=== PATIENT | male | born 1950 | race African-American/Black ===

== ENCOUNTER 2019-08-23 14:54 | Inpatient (IN) | payer OTHER ==
[~2019-08-23] VITALS: Ht 180.3 cm; Wt 70.4 kg
[2019-08-23 17:20] VITALS: BP 142/83
--- NOTE | 2019-08-23 19:35 | NUR ---
ASSUMED CARE OF PT AT 1715. PT HAS A TRACHEOSTOMY AND NEEDED SUCTIONING ONCE ARRIVING ON THE FLOOR. PT REFUSED SUCTIONING FROM NURSES AND REQUESTED RT. RT WAS CALLED AND SUCTIONING WAS STARTED. DR. MARIE SAW THE PT AND FINISHED SUCTIONING PT AND CARED FOR TRACH COLLAR. PT IS ON 14.0 L O2 AND FI02 35%. PT REQUESTED A VOCALIZER. FALL PRECAUTIONS IN PLACE. BED IN LOWEST POSITION. CALL LIGHT IS WITHIN REACH, AND NOC NURSE ADVISED THAT PT CANNOT SPEAK TO VOICE CONCERNS OVER THE INTERCOM. PT WAS GIVEN A PEN AND PAPER TO COMMUNICATE WITH STAFF. NO APPARENT PAIN MENTIONED. REPORT GIVEN TO NOC NURSE.
[2019-08-23] MEDS ORDERED: CARDIZEM60 MG PER TUBE (19:43)
[2019-08-23] MEDS ORDERED: PROSCAR 5MG TABL5 M1 PER TUBE (19:45)
[2019-08-23] MEDS ORDERED: PEPCID20 MG PER TUBE (19:45)
[2019-08-23] MEDS ORDERED: FUROSEMIDE 40 M40 MG PO (19:46)
[2019-08-23] MEDS ORDERED: GUAIFENESIN200 MG PER TUBE (19:48)
[2019-08-23] MEDS ORDERED: NORCO 5-325 TA1 EAC1 PER TUBE (19:50)
[2019-08-23] MEDS ORDERED: MELATONIN3 M2 PER TUBE (19:55)
[2019-08-23] MEDS ORDERED: METFORMIN HCL500 MG PER TUBE (19:56)
[2019-08-23] MEDS ORDERED: REGLAN10 MG PER TUBE (19:57)
[2019-08-23] MEDS ORDERED: MIRALAX119 GM PER TUBE (20:16)
[2019-08-23] MEDS ORDERED: PREDNISONE 5 MG5 MG PER TUBE (20:17)
[2019-08-23] MEDS ORDERED: SIMVASTATIN80 MG PER TUBE (20:18)
[2019-08-23 23:11] VITALS: BP 116/71
--- NOTE | 2019-08-24 02:00 | NUR ---
ASSESSMENT COMPLETED. PT IS ALERT AND ORIENTED. COMMUNICATES WELL BY WRITING. USES URINAL.CONTINUES ON RT TREATMENT Q4HRS. TRACH SHIELD WITH 35%F102@14L. PT HAS GOOD COUGH REFLEX-THICK YELLOW SPUTUM. SUCTIONED A FEW TIMES BY RT.VSS. ALL MEDS GIVEN VIA PEG-QUITE SOME AMOUNT OF RESIDUAL NOTED. EDEMA NOTED TO R ELBOW AREA-HAND ELEVATED ON PILLOW.IV ABTS STARTED.PT WAS GIVEN OXYCODONE X 1 FOR NECK PAIN. WRAPS TO BLE AND LEGS ELEVATED. NO FURTHER CONCERNS.
[2019-08-24] MEDS ORDERED: REGLAN 10 MG TA10 MG PO (04:09)
[2019-08-24 06:16] VITALS: BP 123/80
[2019-08-24 07:01] LABS: ALBUMIN 1.7 g/dL (3.4-5.0); CALCIUM 8.4 mg/dL (8.5-10.1); CREATININE 0.7 mg/dL (0.7-1.3); TOTAL BILIRUBIN 0.2 mg/dL (<0.1-1.0); TOTAL PROTEIN 5.6 g/dL (6.4-8.2)
[2019-08-24 08:20] LABS: HEMATOCRIT 25.5 % (42.0-52.0); HEMOGLOBIN 8.1 gm/dL (14.0-18.0); MCH 25.5 pg (26.0-34.0); MCHC 31.9 g/dL (28.0-37.0); MCV 79.8 fL (80.0-100.0); RBC 3.19 mil/uL (4.50-6.00); RDW 22.8 % (10.5-14.5); WBC 6.3 thou/uL (4.0-11.0)
[2019-08-24 08:36] VITALS: BP 92/62
--- NOTE | 2019-08-24 11:10 | EKG ---
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
[2019-08-24 15:52] VITALS: BP 89/59
--- NOTE | 2019-08-24 18:06 | NUR ---
ASSUMED CARE OF PT AT 0700. PT ON 14.0 LITERS OF O2 FOR THE TRACHEOSTOMY. PTS RESIDUAL WAS 200. PER DR. MARIE NO MORE FEEDINGS UNTIL RESIDUAL ARE 30 ML OR LESS. PT HAD ONE BM THAT WAS LOOSE. PT IS ON CONTACT FOR POSSIBLE C DIFF. CHEST X RAY WAS DONE. IV ON R WRIST. FALL PRECAUTIONS IN PLACE. CALL LIGHT WITHIN REACH AND BED IN LOWEST POSITION. PT HAS VOCALIZER. WILL CONTINUE TO MONITOR.
[2019-08-24 19:58] VITALS: BP 120/71
--- NOTE | 2019-08-25 01:56 | NUR ---
AMIE WHEN I WAS TAKING CARE OF , I COULDN'T PASS THE SUCTION CATHETER. HE WAS IN NO DISTRESS, BUT I KNEW THAT HE'S HAD A LOT SECRETIONS. I TRIED REMOVING THE INNER CANNULA. THAT DIDN'T WORK EITHER. HE STILL WASN'T IN DISTRESS. I MOVED ASIDE THE 4X4. THERE WAS A LOT PUSHED IN AROUND THE VERY LARGE STOMA, BUT IT DIDN'T LOOK LIKE PACKING, AND I TOOK THE SOAKED OLDER GAUZE OUT OF THE WAY. I COVERED THE OPEN AREA WITH 4X4'S IN THE STANDARD FASHION I WOULD FOR ANY TRACH PT. I TRIED AGAIN TO SUCTION AND THIS TIME, THE CATHETER ADVANCED EASILY, AND I WAS ABLE TO CLEAR A FAIRLY LARGE AMT OF SECRETIONS. DURING MY UNSUCCESSFUL ATTEMPTS, SECRETIONS WERE COMING OUT AROUND THE STOMA AREA. PT WAS STILL IN NO DISTRESS. I PLACED HIM ON A CONTINUOUS PULSE OX AND SPOKE WITH HIS RN.
[2019-08-25 04:42] LABS: HEMATOCRIT 22.8 % (42.0-52.0); HEMOGLOBIN 7.3 gm/dL (14.0-18.0); MCH 25.9 pg (26.0-34.0); MCHC 32.2 g/dL (28.0-37.0); MCV 80.4 fL (80.0-100.0); RBC 2.84 mil/uL (4.50-6.00); RDW 24.4 % (10.5-14.5); WBC 6.8 thou/uL (4.0-11.0)
--- NOTE | 2019-08-25 04:51 | NUR ---
PT AMBULATING TO BATHROOM WITH STANDBY ASSIST AND IS TOLERATING WELL. PERCOCET PROVIDING PAIN RELIEF. NEED STOOL FOR CDIFF. RESTING COMFORTABLY. NO NEEDS VOICED. CALL LIGHT WITHIN REACH. WILL CONTINUE TO PROVIDE FREQUENT OBSERVATION.
[2019-08-25 09:16] VITALS: BP 105/67
--- NOTE | 2019-08-25 12:23 | NUR ---
Assumed care of pt at 0700. Pt a&ox4. On 14L O2 and 35% FiO2. Stool sample collected and sent to lab for testing. Awaiting results. On intermittent tube feedings 5 cans javity 1.5 per day. Pt not tolerating. Residual greater than 50 mL. Provider aware. Accu check q6h. Vocalizer at bedside. Breathing treatments q4h. Call light within reach. Will continue to monitor.
--- NOTE | 2019-08-25 12:55 | HC ---
[facility] [place] [address] CONSULTATION Name: ROSA WISE Room #: 445-P [facility] IN M.R.#: [id number] Admission: 08/23/19 Attend Phys: Duglas Yoon MD Discharge: Date of : 48 Report #: [id number] THIS REPORT FOR: //name// CC: Duglas Yoon DATE OF SERVICE: 08/24/2019 WOUND CARE CONSULTATION AND HYPERBARIC EVALUATION REASON FOR CONSULTATION: Hyperbaric oxygen evaluation in the setting of laryngeal cancer, status post total laryngectomy and flap reconstruction with delayed healing due to radiation effect. HISTORY OF PRESENT ILLNESS: The patient is a 68-year-old gentleman with a history of tobaccoism and alcohol use. This patient was diagnosed with laryngeal cancer 16 years ago in 2002 and underwent external beam radiation and chemotherapy. He is currently a patient of Dr. Duglas Yoon, transferred from [facility]. This patient had over 100-pound weight loss over the past year with increasing dysphagia. A new primary cancer of the right side of his larynx was diagnosed 1 year ago. This patient underwent salvage laryngectomy as his only option by Dr. Yoon on 08/11/2019 with creation of a tracheostomy. The patient also had a gastrostomy tube placed for nutrition due to his severe protein-calorie malnutrition. In the postoperative period, the patient developed a pharyngocutaneous fistula. Dr. Yoon took him back to the operating room on 08/16/2019 where the patient underwent bilateral myringotomy tube placement, neck exploration with creation of a diverting spit fistula on the right side of the neck, wound debridement of the cervical laryngectomy site, and laryngectomy stoma revision. At the time of surgery, due to late effects of radiation, it was noted there was virtually no healing whatsoever in the cervical region. The pectoralis major flap, which had been done as part of the patient's reconstruction was intact, but there was no evidence of healing of the surgical flap. There was virtually no healing between the sternocleidomastoid and the overlying skin flap. Dr. Yoon has transferred the patient to [facility] with the intent of the patient undergoing hyperbaric oxygen therapy with 30 treatments of HBO followed by flap reconstruction and then 10-20 more hyperbaric oxygen therapy treatments. PAST MEDICAL HISTORY: 1. History of tobaccoism. 2. History of alcohol use. 3. Squamous cell carcinoma of the larynx, initial diagnosis in 2002, with external beam radiation and chemotherapy, onset of new laryngeal cancer, 07/2013, with laryngectomy done. 4. COPD. 5. History of acute on chronic hypoxic respiratory failure with recent pneumonia. [address] [address] CONSULTATION Name: ROSA WISE Room #: 445-P [facility] IN M.R.#: [id number] Admission: 08/23/19 Attend Phys: Duglas Yoon MD Discharge: Date of : 48 Report #: [id number] 6. Severe protein-calorie malnutrition. 7. History of urinary retention. 8. Hypertension. 9. Hypertrophic cardiomyopathy history. Echocardiography done at [facility], 07/2019, shows ejection fraction of 60-65% with mild aortic regurgitation. Cardiac cath 5 years ago was negative for coronary artery disease. 10. Diabetes mellitus type 2, new diagnosis. The patient on low-dose metformin. 11. Anemia with recent transfusion. 12. History of hypothyroidism. REVIEW OF SYSTEMS: 1. The patient is not able to speak since he had a laryngectomy done. Prior to that, he was able to speak. 2. A 100-pound weight loss over the past year. MEDICATIONS ON TRANSFER: Include Zosyn, metformin, prednisone, finasteride, oxycodone, albuterol, Lovenox, insulin lispro, diltiazem, Pepcid, guaifenesin, levothyroxine, simvastatin, thiamine, hydralazine, acetaminophen, and docusate. PHYSICAL EXAMINATION: GENERAL: Shows an alert, thin, elderly male. The patient is unable to speak due to laryngectomy with tracheostomy. HEENT: Mucous membranes are moist. ABDOMEN: Examination of the neck shows a tracheostomy in place with a trach collar. On the right side of the neck, there is an incision with sutures and a Roberts drain. There is saliva draining from this fistula. Tracheostomy has a large wide opening with tracheostomy in place. Examination of the chest shows decreased breath sounds. There is a healing incision of the right anterior chest wall from pectoralis flap. ABDOMEN: Soft with a PEG tube. EXTREMITIES: Lower extremities show no wounds. RECTAL: Deferred. LABORATORY DATA: Pending. IMPRESSION: 1. Squamous cell carcinoma of the larynx, 2002, with external beam radiation chemotherapy. Onset of new cancer of the larynx requiring, 08/11, total laryngectomy with pectoralis flap and tracheostomy. 2. Late effects of radiation with impaired wound healing of surgical flaps due to late effects of radiation. 3. History of tobaccoism. 4. History of alcohol use. 5. Hypertrophic cardiomyopathy with ejection fraction 60-65%. No evidence of [facility] [address] [place] [address] CONSULTATION Name: ROSA WISE Room #: 445-P ADM IN M.R.#: [id number] Admission: 08/23/19 Attend Phys: Duglas Yoon MD Discharge: Date of : 48 Report #: [id number] coronary artery disease. 6. Severe protein-calorie malnutrition. Labs pending. 7. History of recent respiratory failure with pneumonia, for which he was treated with antibiotics. 8. Diabetes mellitus type 2, new diagnosis with skin complications. PLAN: 1. Tracheostomy care, frequent dressing changes for mucus draining from spit fistula. 2. Order an EKG from [facility]. 3. Order a chest x-ray to clear for hyperbaric oxygen therapy, want a new chest x-ray from this institution as the patient has been treated with IV antibiotics for pneumonia. 4. Recent echocardiogram done at [facility], 07/2019, shows good ejection fraction 60-65%. The patient should tolerate hyperbaric oxygen therapy. 5. The patient has had bilateral myringotomy tubes placed, which should facilitate hyperbaric oxygen therapy. We will get the patient cleared for hyperbaric oxygen therapy by review of EKG and chest x-ray. The patient has no history of claustrophobia. Based on recent echocardiogram, the patient should tolerate hyperbaric oxygen therapy; from a cardiac standpoint, reviewed his chest x-ray to be sure his pneumonia has cleared. Maximize nutrition via PEG tube. We will anticipate the only treatment is hyperbaric oxygen therapy prior to flap reconstruction by Dr. Yoon followed by hyperbaric oxygen therapy, all of this due to late effects of radiation and impaired healing. <ELECTRONICALLY SIGNED> By: Magno Vines MD 08/25/19 1255 0606 0845 Magno Vines MD /isidro
--- NOTE | 2019-08-25 17:31 | NUR ---
ASSUMED CARE AT 1300, SHIFT ASSESMENT DONE, MEDS GIVEN. ORDER RECEIVED FOR BLOOD, ZOSYN RUNNING, WILL START BLOOD AT 1800. RESIDUAL FOR PEG TUBE CHECKED AT 1400 AND 1700, IT WAS 100 AND 70 ML, SO BOLUS TUBE FEEDING WAS HELD. PT IS SUPPOSED TO START CONTINUOUS TUBE FEEDING FROM [facility]. WILL CONTINUE TO ASSESS AND ASSIST WITH ADLs NEEDED.
[2019-08-25 17:41] VITALS: BP 118/69
[2019-08-25 18:30] VITALS: BP 122/76; BP 99/61
[2019-08-25 19:53] VITALS: BP 117/80
--- NOTE | 2019-08-26 02:00 | NUR ---
ASSESSMENT COMPLETED.TUBE FEEDINGS STARTED AT 2100 HRS, VITAL HF AT 25/HR. PT TOLERATING WELL, RESIDUAL BEEN LESS THAN 20CC. PAIN MEDS GIVEN X 1 FOR NECK PAIN. TRACH CARE PROVIDED BY RT SCHEDULED Q4HRS. BLE WITH EDEMA, ELEVATED ON PILLOWS.I OFFERED TO WRAP LEGS WITH AVANI BUT PT REFUSED. SOME EDEMA TO R ELBOW. AFEBRILE. PT LOOKING FORWARD TO HBO TREATMENTS TODAY. AFTER TRANSFUSION WITH 1 UNIT, HGB MOVED UP TO 9.5.STILL WRITING DOWN COMMUNICATIONS, VOCALIZER NOT THAT CLEAR.CALLS APPROPRIATELY.
[2019-08-26 04:12] VITALS: BP 91/62
--- NOTE | 2019-08-26 08:47 | NUR ---
Tube feed recommendations: vital high protein to reach goal of 100ml/hr x 21hrs per day (TF will be off for 3 hr/day/HBO treatment). Try to reach goal rate over next 2-3 days. Recommend water flush of 150ml every 6hr
[2019-08-26 09:00] VITALS: BP 114/70
--- NOTE | 2019-08-26 14:30 | NUR ---
PATIENT TO HYPERBARIC UNIT AFTER AICD INTERRRIGATED AND COMPATABLE TO HAVE HBO THERAPY. PATIENT UP IN THE HALLWAYS WITH PT. DENIES PAIN. TUBE FEEDING INCREASED TO 40 ML THIS AM. TO HYPERBARIC PER CART WITH O2.
[2019-08-26 17:19] VITALS: BP 148/89
[2019-08-26 19:49] VITALS: BP 119/74
--- NOTE | 2019-08-26 20:03 | NUR ---
PATIENT RETUNED TO ROOM AT 1700. TUBE FEEDINGS INCREASED TO 50 ML/HR RESIDUAL IS 10ML. PAIN MED GIVEN WITHOUT RELIEF. WATCHING TV. PATIENT KEPT UP TO DATE TO POC AND REASSURANCE GIVEN. VERBALIZED UNDERSTANDING.
[2019-08-27 04:03] VITALS: BP 109/70
--- NOTE | 2019-08-27 04:19 | NUR ---
ASSUMED PT CARE ON 08/26/19. PT HAS C/O PAIN ON HIS HEAD AT A LEVEL OF 7. PAIN MEDS WERE ADMINISTERED VIA TUBE FEEDING. TUBE FEED MEDICATIONS WERE ADMINISTERED WELL. PT COMMUNINCATES BY WRITING. WHEN I ATTEMPTED TO DO THE DRESSING CHANGE ON THE RIGH CLAVICLE PT REFUSED. PT STATED THAT HE WILL KEEP AN EYE ON IT AND HE DID NOT WANT ME TO TOUCH IT. INCREASED THE TUBE FEEDING BY 5ML/HR. PT IS CURRENTLY AT 65ML/HR. WILL CONTINUE TO INCREASE. PT STATEST THAT HE IS NOT FEELING NAUSEOUS OR NEEDS TO VOMIT. PT IS IN A PLEASANT MOOD. PT STATES THAT HE IS DOING OKAY. WILL CONTINUE TO MONITOR.
[2019-08-27 07:40] VITALS: BP 98/58
--- NOTE | 2019-08-27 14:12 | NUR ---
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 PT HAD TRACHEOSTOMY PLACED AND FAILED SWALLOW STUDY. PT ON TUBE FEEDING AT THIS TIME. CM MET WITH PT AT BEDSIDE YESTERDAY PT IS A&O X4. PT USES COLIN/HEAD GESTURES, WRITING, AND MOUTHS THIS TO COMMUNICATE. PT INDICATED HE HAD BEEN LIVING IN A HOUSE ALONE WITH 2 STEPS TO ENTER AND 2 STEPS INSIDE. PT INDICATED HE HAD BEEN INDEPEDNENT WITH GAIT AND ADLS LIGHT INDUSTRIAL AND HAD BEEN DRIVING. PT INDICATED NO HH HX. PT INDICATED HE HADN'T BE SET UP WITH ENTERAL TUBE FEEDING BEFORE. PT INDICATED HE HOPES TO NOT NEED IT UPON DC. PT IS TO RECIEVE 30 TREATMENTS OF HBO. PT HAS A VOCALIZER AND HAD BEEN PROVIDED A FORKLIFT OPERATOR FOR IT BY . PT HAD TOLD ST THAT HE WAS IN THE PROCESS OF GETTING A FORKLIFT OPERATOR FOR IT. PT'S CONTACT IS WILL MORE NUMBERS LISTED IN RECORD. PT INDICATED HE PLANS TO DC HOME ONCE MEDICALLY STABLE. PT HAS BEEN SEEN BY OT AND PT AND BOTH INDICATED THAT PT WILL LIKELY BE SAFE TO RETURN HOME UPON DC. CM TO FOLLOW INDICATED WITH DC PLANNING.
[2019-08-27 14:49] LABS: HEMATOCRIT 28.1 % (42.0-52.0); MCH 25.9 pg (26.0-34.0); MCHC 31.9 g/dL (28.0-37.0); MCV 81.1 fL (80.0-100.0); PLATELET COUNT 176 thou/uL (150-400); RBC 3.46 mil/uL (4.50-6.00); RDW 24.5 % (10.5-14.5); WBC 7.5 thou/uL (4.0-11.0)
[2019-08-27 15:00] VITALS: BP 100/67
[2019-08-27 15:04] LABS: ALBUMIN 1.9 g/dL (3.4-5.0); CREATININE 0.7 mg/dL (0.7-1.3); MAGNESIUM 1.8 mg/dL (1.8-2.4); POTASSIUM 3.3 mmol/L (3.5-5.1); TOTAL BILIRUBIN 0.2 mg/dL (<0.1-1.0); TOTAL PROTEIN 6.2 g/dL (6.4-8.2)
[2019-08-27 15:38] LABS: ABSOLUTE NEUTROPHILS 6.5 thou/uL (1.4-8.2)
[2019-08-27 15:39] LABS: ANISOCYTOSIS 2+; POLYCHROMASIA OCCASIONAL
[2019-08-27 19:41] VITALS: BP 125/84
--- NOTE | 2019-08-27 21:06 | NUR ---
Assumed care of pt at 0700. Pt a&ox4. HBO treatment today. Tube feeding infusing. Pain controlled with prn pain meds. SBA. 13L O2. BLE edema. Breathing treatments q4h. Accu check q4h. 150ml water flushes q6h. Call light within reach. Report given tp radha SILVA.
--- NOTE | 2019-08-28 04:26 | NUR ---
ASSESSMENT COMPLETED. PT REMAINS ALERT AND ORIENTED.HE IS UP AD BARB.TUBE FEEDINGS AT THE GOAL RATE OF 100/HR-RESIDUAL AT 0300 WAS MORE THAN 60CC, TUBE FEEDINGS ON HOLD FOR NOW. ACCUCHECKS OKAY. TRACH CARE PROVIDED.
[2019-08-28 05:36] VITALS: BP 89/55
[2019-08-28 06:35] LABS: HEMOGLOBIN 7.2 gm/dL (14.0-18.0); MCH 26.5 pg (26.0-34.0); MCHC 32.4 g/dL (28.0-37.0); PLATELET COUNT 151 thou/uL (150-400); RBC 2.72 mil/uL (4.50-6.00); WBC 5.3 thou/uL (4.0-11.0)
[2019-08-28 06:36] LABS: HEMATOCRIT 22.3 % (42.0-52.0); MCV 81.8 fL (80.0-100.0); RDW 25.1 % (10.5-14.5)
[2019-08-28 06:54] LABS: CALCIUM 7.8 mg/dL (8.5-10.1); CREATININE 0.7 mg/dL (0.7-1.3); MAGNESIUM 1.6 mg/dL (1.8-2.4); POTASSIUM 3.2 mmol/L (3.5-5.1)
[2019-08-28 08:20] VITALS: BP 96/56
[2019-08-28 09:01] LABS: ABSOLUTE NEUTROPHILS 4.6 thou/uL (1.4-8.2); ANISOCYTOSIS 2+; MACROCYTES 1+; MICROCYTES 1+; OVALOCYTES FEW
--- NOTE | 2019-08-28 14:19 | NUR ---
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 Dc timeframe uncertain. Pt did well with therapy. TF held today due to high residuals. Will follow.
--- NOTE | 2019-08-28 14:50 | NUR ---
CONTACTED [employer] IN EDUCATION RELATED TO TEACHING MATERIALS FOR A NEW TRACH PT. SHE WILL LOCATE SUPPLIES AND ALERT RESP. [place] OF NEED FOR TEACHING.
[2019-08-28 17:26] VITALS: BP 102/66
--- NOTE | 2019-08-28 18:45 | NUR ---
ASSUMED CARE OF PT AT 0700. PT IS RECEIVING CONTINUOS FEEDINGS THROUGH PPN.PT BLOOD OCCULT RESULTS ARE POSITIVE PER PHARMACY DOES DOCTOR WANT PT TO CONTINUE LOVENOX. PT REFUSED DRESSING CHANGE OF R CHEST. RESIDUAL WAS LESS THAN 50. FALL PRECAUTIONS IN PLACE. BED IN LOWEST POSITION AND CALL LIGHT WITHIN REACH. PT PULLED OUT PPN FROM PEG TUBE AND REFUSED FEEDING AT END OF SHIFT. WILL GIVE REPORT TO NOC NURSE.
[2019-08-28 19:15] VITALS: BP 93/56
[2019-08-29] VITALS (11 sets, daily range): BP systolic 74–145; BP diastolic 40–84
--- NOTE | 2019-08-29 00:34 | NUR ---
ASSESSMENT COMPLETED. PT DISCONNECTED TUBE FEEDINGS AT THE BEGINNING OF SHIFT. PT REPORTS HAVING LOTS OF LOOSE STOOLS AND FEELING WEAK FROM WALKING TO THE BATHROOM SEVERAL TIMES.BEDSIDE COMMODE PROVIDED AND PT IS AGREEABLE TO USING IT.PT WANTS BREAK FROM TUBE FEEDING TONIGHT.OCCULT BLOOD POSITIVE,PT STARTED ON PROTONIX DRIP AND GI CONSULT PLACED. PT GENERALLY LOOKS PALE AND WEAK. BP ON THE SOFTER SIDE. RT PROVIDING TRACH CARE Q4HRS.EDEMA TO BLE, LEGS ELEVATED ON PILLOWS.WILL CONTINUE WITH POC TILL EOS.
[2019-08-29 06:09] LABS: WBC 4.7 thou/uL (4.0-11.0)
[2019-08-29 06:11] LABS: MCH 26.8 pg (26.0-34.0); MCHC 32.3 g/dL (28.0-37.0); MCV 83.1 fL (80.0-100.0); PLATELET COUNT 128 thou/uL (150-400); RBC 1.89 mil/uL (4.50-6.00); RDW 26.6 % (10.5-14.5)
[2019-08-29 06:29] LABS: HEMATOCRIT 15.7 % (42.0-52.0); HEMOGLOBIN 5.1 gm/dL (14.0-18.0)
[2019-08-29 06:32] LABS: CALCIUM 7.7 mg/dL (8.5-10.1); CREATININE 0.7 mg/dL (0.7-1.3); MAGNESIUM 1.7 mg/dL (1.8-2.4); POTASSIUM 3.2 mmol/L (3.5-5.1)
[2019-08-29 06:34] LABS: % SATURATION 24 % (20-39); IRON 36 ug/dL (65-175); TIBC 153 ug/dL (250-450)
[2019-08-29 07:01] LABS: FOLIC ACID 12.9 ng/mL (8.6-58.9)
[2019-08-29 08:52] LABS: ABSOLUTE NEUTROPHILS 3.5 thou/uL (1.4-8.2); PLATELET ESTIMATE NORMAL
[2019-08-29 08:53] LABS: ANISOCYTOSIS 1+; MICROCYTES 2+; OVALOCYTES 1+; POIKILOCYTOSIS SLIGHT
--- NOTE | 2019-08-29 13:10 | NUR ---
When safe to resume TF following procedure, suggest starting back at ~50% goal rate at 40-50 ml/hr, increasing TF rate as pt tolerates to ultimate goal of 100 ml/hr x 21 hrs/day with Vital High Protein. Recommend avoid holding TF for residuals < 200 or 300 ml. Recommend replacing K+, Phos, and Mag lytes prior to resuming PEG feeds.
[2019-08-29 17:39] LABS: HEMATOCRIT 23.6 % (42.0-52.0)
[2019-08-29 17:55] LABS: HEMOGLOBIN 7.8 gm/dL (14.0-18.0)
--- NOTE | 2019-08-29 19:30 | NUR ---
Assumed care of pt at 0700. A&o x4. Hg 5.1 this am. material handler 1st shift called in critical result to MAINTENANCE PLANNER. Transfusion ordered. EGD ordered. Pt received 2 units of PRBC in pre-op. Will go to ICU after surgery. Report given to ICU nurse. Pt's belongings sent to ICU as well.
[2019-08-29 21:11] LABS: HEMATOCRIT 24.2 % (42.0-52.0)
--- NOTE | 2019-08-29 21:15 | NUR ---
CALLED DR. PARDO IF PT'S PO MEDS CAN BE RESTARTED. DR. PARDO GAVE THE PERMISSION TO GIVE MEDS THROUGH PEG TUBE. DR. PARDO SAID SHE DOES NOT THINK THAT GIVING MEDS THROUGH PEG TUBE WOULD CAUSE ANY PROBLEM TO THE CAUTERIZED PART OF THE GI BECAUSE THE ULCER PROBLEM IS ALREADY RESOLVED.
[2019-08-30] VITALS (15 sets, daily range): BP systolic 99–127; BP diastolic 53–70
[2019-08-30 05:40] LABS: HEMATOCRIT 21.3 % (42.0-52.0); HEMOGLOBIN 7.1 gm/dL (14.0-18.0); MCH 28.7 pg (26.0-34.0); MCHC 33.2 g/dL (28.0-37.0); MCV 86.3 fL (80.0-100.0); RBC 2.46 mil/uL (4.50-6.00); RDW 23.6 % (10.5-14.5)
[2019-08-30 06:06] LABS: CALCIUM 7.6 mg/dL (8.5-10.1); CREATININE 0.6 mg/dL (0.7-1.3); MAGNESIUM 1.7 mg/dL (1.8-2.4); POTASSIUM 3.2 mmol/L (3.5-5.1)
--- NOTE | 2019-08-30 07:38 | NUR ---
Pt HH trending down this am. Pt alert and oriented. pt able to communicate through writing. Only one large black loose stool at night. Vitals signs stable throughout the night. Pt going for hyperbaric treatment this am.
--- NOTE | 2019-08-30 07:55 | NUR ---
Pt TRANSFERRED TO ICU. WILL PLACE ON HOLD AND AWAIT NEW ORDERS TO RESUME WHEN APPROPRIATE
--- NOTE | 2019-08-30 12:01 | NUR ---
PT TAKEN TO ROOM 448 VIA WHEEL CHAIR AND REPORT GIVEN TO MARYLIN TO ASSUME NURSING CARE. ALL BELONGINGS WITH PT TO ROOM PRIOR TO TRANSFER CHART AND MEDS TAKEN WITH PT IN ADDITION. NEED TO SEE IF PT IS GETTING HYPERBARIC TREATMENT TODAY. CALL LIGHT WITHIN REACH IF NEEDS ANYTHING OR CONCERNS.
[2019-08-30 12:30] LABS: HEMATOCRIT 25.1 % (42.0-52.0); HEMOGLOBIN 8.1 gm/dL (14.0-18.0)
--- NOTE | 2019-08-30 19:26 | NUR ---
Pt transferred from ICU approx 1130. A&o x4. Tracheostomy on 12L O2, 35% FiO2. Tube feeding restarted at a low rate 50ml/hr to see how pt will tolerate. Stool sample needed. Fluids restarted. SBA. Report given to radha SILVA.
--- NOTE | 2019-08-31 04:38 | NUR ---
PATIENT ALERT AND ORIENTED X4. COMMUNICATES WITH BREN AND WRITING ON CLIPBOARD. IVF INFUSING PER ORDER W/O COMPLICATION. TF INFUSING W/O RESIDUAL AT 50/HR. BS MONITORED PER ORDER. REMAINS NPO. MEDS ARE CRUSHED AND PUT THROUGH PEG TUBE. URINAL AT BEDSIDE. STOOL SAMPLE SENT PER ORDER. SUCTIONED PER RT THROUGH TRACH. RESTING AT TIME OF NOTE. WILL MONITOR.
[2019-08-31 05:00] VITALS: BP 107/73
[2019-08-31 06:40] LABS: HEMATOCRIT 22.8 % (42.0-52.0); HEMOGLOBIN 7.5 gm/dL (14.0-18.0); MCH 28.8 pg (26.0-34.0); MCHC 32.7 g/dL (28.0-37.0); RBC 2.59 mil/uL (4.50-6.00); RDW 23.7 % (10.5-14.5); WBC 4.8 thou/uL (4.0-11.0)
[2019-08-31 06:45] LABS: CALCIUM 7.7 mg/dL (8.5-10.1); CREATININE 0.7 mg/dL (0.7-1.3); MAGNESIUM 1.7 mg/dL (1.8-2.4); POTASSIUM 3.1 mmol/L (3.5-5.1)
[2019-08-31 08:35] VITALS: BP 101/63
--- NOTE | 2019-08-31 10:54 | NUR ---
PT IN BED HOB UP 30 DEGREE'S PEG TUBE FEEDING INFUSING ORDERED. PEG TUBE CHECKED VIA A/A NO RESIDUAL. MEDS PER PEG TUBE AHS FLUIDS AND IV ABTS' ORDERED. LEFT AC IV ACSESS. RESP SEES PATIENT TRACH CARE AND PRN SUCTIONING ORDERED. PT USES YRINAL ABLE TO TALK AND ALSO COMMUNICATES VIA PAD AND PEN. PT IS NPO BUT USES MOUTH SWABS. STATES NO PAIN THIS AM
[2019-08-31 16:40] VITALS: BP 109/65
--- NOTE | 2019-08-31 19:43 | NUR ---
DR LOPES ENT HERE TO SEE PATIENT HE STATES THAT PATIENT WILL CONTINUE HBO TX'S AND THEN FLAP CAN BE DONE GOAL IS TO BE ABLE TO EAT AGAIN. PT IS PLEASANT AND COOPERATIVE WITH CARE,
[2019-08-31 22:15] VITALS: BP 101/64
[2019-09-01 03:46] LABS: HEMATOCRIT 23.4 % (42.0-52.0); HEMOGLOBIN 7.5 gm/dL (14.0-18.0); MCH 28.9 pg (26.0-34.0); MCHC 32.2 g/dL (28.0-37.0); MCV 89.7 fL (80.0-100.0); RBC 2.61 mil/uL (4.50-6.00); RDW 24.6 % (10.5-14.5); WBC 4.5 thou/uL (4.0-11.0)
[2019-09-01 03:51] LABS: CALCIUM 7.5 mg/dL (8.5-10.1); CREATININE 0.7 mg/dL (0.7-1.3); MAGNESIUM 1.7 mg/dL (1.8-2.4); POTASSIUM 3.6 mmol/L (3.5-5.1)
--- NOTE | 2019-09-01 04:23 | NUR ---
PATIENT ALERT AND ORIENTED X4. UP TO BATHROOM. IVF INFUSING W/O COMPLICATION. TF INFUSING AT 55 W/O RESIDUAL. MEDICATED FOR PAIN X1 DURING THE NIGHT AT TIME OF NOTE. DR. MARIE IN TO SEE PATIENT AND SPOKE AT LENGTH REGARDING HIS CONDITION AND THE PLAN GOING FORWARD - PATIENT UNDERSTANDS. BS MONITORED PER ORDER. REMAINS NPO. RT MONITORING PER ORDER. RESTING QUIETLY AT TIME OF NOTE. WILL MONITOR.
[2019-09-01 05:50] VITALS: BP 94/61
[2019-09-01 10:00] VITALS: BP 109/61
[2019-09-01 19:31] VITALS: BP 118/64
--- NOTE | 2019-09-02 03:47 | NUR ---
PATIENT ALERT AND ORIENTED X4. UP ADLIB IN ROOM. MEDICATED FOR PAIN X2 AT TIME OF NOTE. IVF INFUSING W/O COMPLICATION. BS MONITORED PER ORDER. PATIENT TO RESUME BARIATRIC TREATMENTS TODAY THROUGH MONDAY. RT MONITORING TRACH WITH CONTINUOUS [address]. THIS NURSE RECEIVED APPROX 50ML OF RESIDUAL FROM TUBE FEEDING AND DISCONTINUED FOR APPROX. TWO HOURS. RESTARTED WITH RESIDUAL OF 0 AT 60ML/HR WHICH IS PATIENTS TARGET INFUSION RATE. WILL MONITOR. REMAINS NPO. RESTING QUIETLY.
[2019-09-02 04:48] LABS: HEMATOCRIT 25.5 % (42.0-52.0); HEMOGLOBIN 8.2 gm/dL (14.0-18.0); MCH 29.3 pg (26.0-34.0); MCV 91.6 fL (80.0-100.0); RBC 2.79 mil/uL (4.50-6.00); RDW 25.7 % (10.5-14.5); WBC 5.5 thou/uL (4.0-11.0)
[2019-09-02 04:54] LABS: CALCIUM 7.6 mg/dL (8.5-10.1); CREATININE 0.6 mg/dL (0.7-1.3); MAGNESIUM 1.6 mg/dL (1.8-2.4); POTASSIUM 3.4 mmol/L (3.5-5.1)
[2019-09-02 07:04] VITALS: BP 96/61
--- NOTE | 2019-09-02 09:24 | NUR ---
NUTRITION RECOMMENDATIONS: 1) To more easily meet estimated calorie needs and higher protein needs, recommend change in EN formula to Vital AF 1.2. 2) If EN formula changed to Vital AF 1.2, new goal rate based off 21 hr run time would be 80 ml/hr x 21 hrs to provide 2016 kcals, 126 g protein which meets 96% low-end energy needs and 100% protein needs at 1.5-2 g/kg. 3) Recommend rechecking PHOS lab; was low when last checked on 08/28. 4) Continue to replace lytes for K+ and Mag prior to any further EN increases.
--- NOTE | 2019-09-02 12:05 | NUR ---
PT A&OX4. IV INTACT IN R AC INFUSING D5NS@50/HR. TUBE FEEDING INFUSING @ 60/HR. PT HAS RETURNED FROM HYPERBARIC TREATMENT AT THIS TIME. RESIDUIAL PRIOR TO MORNING MEDS WAS 30ML. GLAZIER APPRENTICE HAS RECOMMENDED VITAL AF 1.2 @ 80/HR. WILL NOTIFY PHYSICIAN.
[2019-09-02 18:04] VITALS: BP 119/73
[2019-09-02 19:52] VITALS: BP 118/73
[2019-09-03 00:06] VITALS: BP 125/80
--- NOTE | 2019-09-03 04:34 | NUR ---
ASSUMED CARE OF PT @1900 PT ASSESSED AT START OF SHIFT. TRACH MASK IN PLACE AND ON CONT O2L. IV INTACT AND FLUIDS INFUSING. TUBE FEEDING INFUISING. STARTED NEW FEEDING VITAL AF 1.2 @80ML/HR. SBA TO THE BATHROOM. BS DONE Q6. PT LETS NEEDS KNOWN. WRITES ON PAPER AND HAS A VOICE BOARD AT BEDSIDE. WILL CONT WITH POC TILL EOS.
[2019-09-03 05:17] VITALS: BP 99/59
[2019-09-03 08:00] VITALS: BP 108/67
[2019-09-03 16:50] VITALS: BP 103/69
--- NOTE | 2019-09-03 18:50 | NUR ---
RECEIVED PT'S CARE AROUND 0715; AOX4; DURING ASSESSMENT C/O PAIN OVER HEAD; PRN ACETAMINOPHEN WITH AM MEDICATION GIVEN ON FEEDING TUBE; RESIDUAL OVER PEG TUBE 40 ML; GONE FOR PROCEDURE AROUND 0850; PER REPORT PT. NOT ABLE TO TOLERATE PROCEDURE; C/O SINUS PAIN; MEDICATION ON PHARMACY; CHECKED MEDICATION FOR SINUS; PHYSICIAN NOTIFIED; DURING THE EVENING PHYSICIAN AT THE BED SIDE; ORDERS RECEIVED; C/O PAIN EARLY ON THE EVENING; PRN OXYCODONE GIVEN; THROUGH THE DAY PT. WATCHING TV; ASSESSMENT CHARGED; FOLLOWING POC; WILL PASSED ON REPORT;
[2019-09-03 19:45] VITALS: BP 114/64
--- NOTE | 2019-09-03 21:24 | P ---
[facility] [place] [address] PROCEDURE REPORT Name: ROSA WISE Room #: 448-P ADM IN M.R.#: [id number] Admission: 08/23/19 Attend Phys: Duglas Yoon MD Discharge: Date of : 48 Report #: [id number] THIS REPORT FOR: //name// CC: Duglas Yoon MD DATE OF SERVICE: 08/29/2019 PROCEDURE: Esophagogastroduodenoscopy through patient's neck wound and fistula behind the pectoralis flap with assistance from Dr. Duglas Yoon and identification, localization of the suspected upper GI bleed involving a small ulcer with a red visible vessel in the distal duodenal bulb and epinephrine injection of vessel and BICAP cautery and ablation of the visible vessel in the duodenal ulcer. INDICATION FOR PROCEDURE: Upper gastrointestinal bleeding with a fairly rapid drop in his hemoglobin to 5.1 grams. The patient has been volume resuscitated with 2 units of blood. Informed consent for this procedure was obtained prior to the administration of any medication. The risks of the procedure includes the following: Bleeding, perforation, infection, complications of sedation and other possible risks that are not mentioned. I have explained the 5 initial potential risks to the patient and that there were other possible risks that could also develop that I could not predict. He has indicated his consent by signing. Dr. Duglas Yoon assisted me with this procedure. DESCRIPTION OF PROCEDURE: With the patient in the supine position and his head elevated and the body tilted slightly to the left, the Olympus upper videoscope was introduced through the pharyngeal cutaneous fistula and the trachea through the fistula behind the pectoralis flap and into the esophagus by Dr. Duglas Yoon with direct visualization. Then, I was able to advance the scope down through the esophagus and stomach and to the third portion of the duodenum. There was no blood seen in the upper GI tract at the time of this evaluation. Then, the scope was slowly withdrawn. The second portion of the duodenum appears normal. In the distal duodenal bulb, there was a small ulceration with a red nonbleeding visible vessel. This was injected with 1 mL of epinephrine total and then a BICAP cautery was used to ablate and control this potential bleeding vessel completely. It was washed with a water jet and found to be stable. We monitored it for several minutes during this exam and it did not rebleed. Then the scope was withdrawn further. The rest of the duodenal bulb appears normal. Pylorus, normal mucosa. Antrum, normal mucosa. Body, normal mucosa. Cardia and fundus, normal mucosa. The scope was withdrawn into the esophagus. The visualized esophageal mucosa appears normal. The scope was then withdrawn through the pectoralis flap and the trachea and the anterior cervical [facility] [address] [place] [address] PROCEDURE REPORT Name: ROSA WISE Room #: 448-P ADM IN M.R.#: [id number] Admission: 08/23/19 Attend Phys: Duglas Yoon MD Discharge: Date of : 48 Report #: [id number] skin without difficulty. Dr. Yoon proceeded to make further repairs to the lesion after the procedure. Please see his note. The patient tolerated the procedure well. He went to the recovery room in stable condition. IMPRESSION: Distal duodenal bulb ulceration with visible vessel and edematous stomach, otherwise normal EGD except for the proximal esophagus where there is a fistula behind the pectoralis flap through which I was able to remove the scope. The second portion of the duodenum and the stomach and the visualized esophagus otherwise were normal except for the duodenal bulb ulcer. 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 RECOMMENDATIONS: My recommendations are to continue proton pump inhibitors, Protonix 40 mg IV push q.12 hours. We will recheck an H and H now and q.12 hours for 24 hours to ensure stability. Thank you very much once again for allowing me to participate in his care. <ELECTRONICALLY SIGNED> By: Yajaira Roman DO 09/03/[id number] 24 Yajaira Roman DO /nt
--- NOTE | 2019-09-04 04:37 | NUR ---
ASSUMED CARE OF PATIENT AT 2200 AFTER RT ADMINISTERED THX. ASSESSMENT CHARTED. MEDICATIONS GIVEN PER DEC. RESIDUAL TUBE FEED PRIOR TO ADMINISTRATION WAS 30CC. NO PAIN OR CRAMPING UPON ADMINISTRATION. PATIENT IS A&OX4 BUT IS NON VERBAL DUE TO BEING A TRACH PATIENT. PATIENT C/O SINUS PRESSURE. SINGULAIR ADMINISTERED. PATIENT GETS UP WITH NO ISSUES AND WILL CALL FOR HELP. DENIES ANY OTHER NEEDS AT THIS TIME. WILL CONTINUE TO MONITOR AND FOLLOW POC.
[2019-09-04 04:55] VITALS: BP 113/63
[2019-09-04 05:34] LABS: HEMATOCRIT 22.4 % (42.0-52.0); HEMOGLOBIN 7.3 gm/dL (14.0-18.0); MCH 29.5 pg (26.0-34.0); MCHC 32.5 g/dL (28.0-37.0); MCV 90.7 fL (80.0-100.0); RBC 2.47 mil/uL (4.50-6.00); RDW 26.3 % (10.5-14.5)
[2019-09-04 08:26] VITALS: BP 123/72
[2019-09-04 15:00] VITALS: BP 111/67
--- NOTE | 2019-09-04 17:05 | NUR ---
pt is A&OX3, PT has medication for anxiety , so pt has finished his hyperbaric oxygen treatment today, pt's trach wound care has done by RT, PT is continuing NPO, pt is tolerative tube feeding at 80ml/hr, pt is continuing trach mask o2 35%, pt denies pain and sob at this time.pt has slowly meeting care plan goals.
[2019-09-04 20:04] VITALS: BP 118/80
--- NOTE | 2019-09-05 02:30 | NUR ---
WOUND CARE COMPLETE PER NURSING ORDER. WOUND CARE DONE TO BILATERAL FEET. PATIENT DENIED ANY PAIN BEFORE, DURING OR AFTER CARE. PATIENT DENIES NEEDS AT THIS TIME. WILL CONTINUE TO MONITOR
--- NOTE | 2019-09-05 05:13 | NUR ---
ASSUMED CARE OF PATIENT AT SHIFT CHANGE. ASSESSMENT CHARTED. MEDICATIONS ADMINISTERED PER MAR/TUBE FEED. PATIENT REQUESTS "STERILE WATER" TO FLUSH PEG TUBE. PATIENT IS A&OX4 AND VOICES NO CONCERNS AT THIS TIME. VSS. PATIENT WOULD LIKE TO SLEEP TONIGHT AND IS RESTING COMFORTABLY. TRACH CARE COMPLETED EARLIER ON 09/04 BY PHYSICIAN. SUCTIONED PRN BY RT. FALL PRECAUTIONS IN PLACE. WILL CONTINUE TO MONITOR AND FOLLOW POC
[2019-09-05 05:30] LABS: CALCIUM 7.7 mg/dL (8.5-10.1); CREATININE 0.4 mg/dL (0.7-1.3); MAGNESIUM 1.5 mg/dL (1.8-2.4); POTASSIUM 4.5 mmol/L (3.5-5.1)
[2019-09-05 09:22] LABS: HEMATOCRIT 25.9 % (42.0-52.0); HEMOGLOBIN 8.3 gm/dL (14.0-18.0); MCH 29.5 pg (26.0-34.0); MCV 92.1 fL (80.0-100.0); RBC 2.81 mil/uL (4.50-6.00); RDW 27.1 % (10.5-14.5); WBC 7.1 thou/uL (4.0-11.0)
--- NOTE | 2019-09-05 13:50 | NUR ---
PT A&OX4. IV INTACT IN F FA. AMBULATES WITH STAND BY ASSIST. TUBE FEEDING INFUSING AT 80/HR WITH <5 ML RESIDUAL. TRACH INTACT WITH O2 AT 13L. DENIES PAIN AT THIS TIME. HAS RETURNED FROM HBO TREATMENT, WAS MEDIACTED FOR ANXIETY PRIOR TO TREATMENT. WILL CONT POC.
--- NOTE | 2019-09-05 16:03 | NUR ---
S/W [facility] AND THEY SAY THEY HAVE NOT RECEIVED ANY FAXES ON THIS PT. FAXED FACE SHEET, H&P, DIETARY REC FOR TUBE FEEDINGS, CONSULTS, LAST COUPLE OF DAYS PROGRESS NOTES. FOLLOWING.
[2019-09-05 19:57] VITALS: BP 112/67
--- NOTE | 2019-09-06 05:32 | NUR ---
PATIENT ALERT AND ORIENTED X4. O2 PER TRACH SHIELD. SUCTIONED BY RT. TUBE FEEDING OF VITAL AF PER PEG. REMAINS NPO. RESIDUAL HAS BEEN 0 ALL NIGHT. FLUSHED WITH H2O. PATIENT COMMUNICATES BY MOUTHING WORDS OR WRITING IT DOWN. ACCUCHECK AT [place] WAS 86. DENIES PAIN. SLEPT MOST OF NIGHT.
[2019-09-06 05:48] LABS: HEMATOCRIT 23.9 % (42.0-52.0); HEMOGLOBIN 7.8 gm/dL (14.0-18.0)
[2019-09-06 08:45] VITALS: BP 100/60
--- NOTE | 2019-09-06 15:41 | NUR ---
ASSUMED CARE OF PT AT 0700. PT TRACH DRESSING IS CLEAN AND INTACT. PULLED RESIDUAL FROM PEG TUBE AT 65ML AND STOPPED FEEDING TEMPORARILY, RESTARTED FEEDING AFTER PT RETURNED FROM HBO TX. CRUSHED MORNING MEDS AND FLUSHED WITH STERILE WATER. BED IS IN THE LOWEST POSITION AND CALL LIGHT IS WITHIN REACH. WILL CONTINUE TO MONITOR PT.
[2019-09-06 16:02] VITALS: BP 124/65
[2019-09-06 20:15] VITALS: BP 125/79
--- NOTE | 2019-09-07 01:59 | NUR ---
ASSUMED PT CARE ON 09/06/19. PT IS ALERT AND ORIENTED X 4. PT HAS A FLAT AFFECT. PT ASKED THAT I NOT PUT AIR IN HIS STOMACH WHEN I WAS ABOUT TO GIVE HIS MEDICATION VIA PG TUBE. I EXPLAINED THAT I NEEDED TO MAKE SURE THAT THE TUBE WAS STILL PATENT. PT COMPLAINED OF PAIN (HEADACHE AND HIS NECK NEAR THE TRACH TUBE). PAIN RATED AT A 7. I AMDINISTERED OXYCODONE. I CHECKED ON THE PT TO SEE IF HE WAS IN PAIN HE STATED THAT HIS HEAD HURT AND THAT IT WAS AT A 7. PAIN MEDICATION WAS ADMINISTERED. WHILE I WAS IN THE ROOM HE TOLD ME THAT SOMETHING WAS WRONG WITH THE IV. IV WAS REPLACED BY A NURSE ON THE UNIT. IT IS NOW IN THE RIGHT HAND. PT IS NOW RESTING IN THE ROOM. WILL CONTINUE TO MONITOR.
[2019-09-07 06:00] VITALS: BP 127/77
[2019-09-07 07:22] VITALS: BP 118/72
--- NOTE | 2019-09-07 13:14 | NUR ---
PT A&OX4. IV INTACT IN R HAND INFUSING CONT. FLUIDS AT 50/HR W/O COMPS. PEG TUBE INTACT TO L ABD, 20 ML RESIDUAL RETRIEVED, MEDS CRUSHED AND PLACED IN TUBE, PT REQUESTING MEDS BE MIXED WITH STERILE H2O INSTEAD OF TAP WATER. NEW BAG OF VITAL 1.2 AF STARTED WITH NEW TUBING. DENIES ANY PAIN AT THIS TIME, TRACH IS IN PLACE DELIVERING O2@[address]. WILL CONT POC.
[2019-09-07 18:04] VITALS: BP 131/78
[2019-09-08 03:11] VITALS: BP 110/65
[2019-09-08 05:10] VITALS: BP 136/71
--- NOTE | 2019-09-08 06:05 | NUR ---
ASSUMED OT CARE ON 09/07/19. PT ALERT AND ORIENTED X4. PT COMMUNICATES BY MOUTHING WORDS AND WRITING ON PAPER. PT HAS FLAT AFFECT DURING FIRST PART OF SHIFT. AFTER BEING VISITED BY RESPIRATORY PT HAD COMPLAINTS OF CHEST PAIN. I GAVE TYLENOL WITH SCHEDULED MEDICATION. PT DID NOT WANT TO CONTINUE THE CONTINUOUS FEEDING SO I DID NOT TURN ON. I CLEAMED AND RE DRESSSED THE PEG TUBE DRESSING.I CHECKED WITH THE PT MULTIPLE TIMES AND HE REFUSED. PT RESTING IN ROOM WHEN I CAME BACK TO ASSESS THE PT PAIN. PATIENT WAS IN A HAPPY MOOD FOR THE LATER PORTION OF THE SHIFT. WILL CONTINUE TO MONITOR.
[2019-09-08 09:05] VITALS: BP 123/74
[2019-09-08 16:49] VITALS: BP 130/79
[2019-09-08 19:47] VITALS: BP 115/70
--- NOTE | 2019-09-08 20:01 | NUR ---
PT HAS BEEN ALERT XS 4 ON SHIFT PEG TUBE FEEDING INFUSING ORDERED. NO RESIDUAL MEDS THROUGH PEG TUBE PT REMAINS NPO. IV FLUIDS ORDERED. PT'S BLOOD SUGARS CHECKED AND PT HAS S/S SCALE. PT PLEASANT AND COOPERATIVE WITH CARE.
--- NOTE | 2019-09-09 06:40 | NUR ---
PATIENT ALERT AND ORIENTED X4. TUBE FEEDING INFUSING W/O COMPLICATION AND NO RESIDUAL. IVF INFUSING W/O COMPLICATION. BS MONITORED PER ORDER. VOIDING PER BRP. NO C/O PAIN DURING THE NIGHT. RESTING QUIETLY. WILL MONITOR.
[2019-09-09 09:00] VITALS: BP 102/58
--- NOTE | 2019-09-09 11:33 | NUR ---
PT A&OX4. IV INTACT IN R FA INFUSING D5NS@50/HR. TRACH INTACT WITH HUMIDIFIED 02. PEG TBE INFUSING VIATL 1.2 AF @80ML/HR. PT RETURNED FROM HBO AND TOLERATING WELL BEING MEDICATED WITH ATIVAN 2MG IV PRIOR. WILL CONT POC.
--- NOTE | 2019-09-09 16:14 | NUR ---
CM FOLLOWED UP WITH RAZ MESSINA WITH [employer] THIS DAY AND THEY INDICATED THAT THEY HAVE PT'S ENTERAL SUPPLIES AND ARE ABLE TO SUPPLY THEM UPON POSSIBLE DC TOMORROW. CM CALLED AND SPOKE WITH MANJU REGARDING PT'S TRACH SUPPLIES FOR HOME AND DOCUMENTATION WAS PROVIDED REGARDING WHAT PT HAS CURRENTLY. SHE HAS AN ORDER FORM THAT SHE CAN COMPLETE WITH ORDERERING INFO. CM TO FOLLOW UP TOMORROW AM ONCE IT IS DETERMINED IF TRACH IS GOING TO BE CUFFED AND IF IF DISPOSIBLE OR NOT DISPOSABLE. CM TO FOLLOW INDICATED WITH DC PLANNING. PT IDNICATED TO NURSE YULY THAT HE WAS CONCERNED ABOUT DISCHARGING HOME WITH EVERYTHING HE HAS GOING ON AND NO SUPPORT. CALL WAS PLACE TO INSRUANCE TO LOOK INTO OPTIONS. CM TO FOLLOW INDICATED WITH DC PLANNING.
[2019-09-09 20:05] VITALS: BP 116/65
[2019-09-10 00:35] VITALS: BP 116/65
--- NOTE | 2019-09-10 03:40 | NUR ---
ASSUMED PATIENT CARE AT APPROX. 2100. ASSESSMENT CHARTED. MEDICATIONS ADMINISTERED PER DEC. PT A&OX4, VSS, DENIES PAIN. O2 SATS AT BASLINE W/ TRACH MASK. PT UP TO BATHROOM AND TOLERATES WELL. PATIENT REMAINS NPO AND USES WATER SWABS AND SWISHES COLD WATER IN MOUTH BEFORE SUCTIONING. PER CASE MANAGEMENT, WE CONTINUE TO LOOK FOR PLACEMENT FOR THIS PATIENT. PATIENT DENIES NEEDS AT THIS TIME. WILL CONTINUE TO MONITOR PATIENT AND FOLLOW POC.
[2019-09-10 05:00] VITALS: BP 116/67
--- NOTE | 2019-09-10 16:54 | NUR ---
FAXED REFERRAL TO [facility] RECEIVED CONFIRMATION AND SPOKE WITH LUIS IN ADM SHE WILL REVIEW. FAXED REFERRAL TO [facility] RECEIVED CONFIRMATION AND LEFT MSG WITH RADHIKA IN ADM FAXED REFERRAL TO [facility] RECEIVED CONFIRMATION AND WILL F/U WITH FACILITY IN THE MORNING. DP TO FOLLOW.
--- NOTE | 2019-09-10 16:54 | NUR ---
ASSUMED CARE OF PT AT 0700. PT HAD HBO DONE THIS MORNING. IV INFILTRATED AND IV REDONE ON R UPPER ARM, DRY AND INTACT. DOCTOR WANTS TO FOCUS ON PT DISCHARGING AND PT WANTS TO SPEAK MORE ABOUT POSTPONING DISCHARGE UNTIL MORE COMFORTABLE WITH CARING FOR HIMSELF. RESIDUAL LESS THAN 50, PEG TUBE IN PLACE. TRACH USES LUKEWARM WATER WITH STERILE WATER TO CONTROL.PT REFUSES O2 MONITOR. PT IS AMBULATORY. CALL LIGHT WITHIN REACH AND BED IN LOWEST POSITION. WILL CONTINUE TO MONITOR THE PT.
[2019-09-10 17:00] VITALS: BP 121/64
[2019-09-10 19:35] VITALS: BP 134/82
--- NOTE | 2019-09-11 01:40 | NUR ---
ASSUMED PT CARE ON 09/10/19 AT 1915. PT IS IN A PLEASANT MOOD. PT HAS COMPLAINTS OF A HEADACHE SO I GAVE TYLENOL WITH HIS PM SCHEDULED MEDICAITON. PT HOLDS THE PEG TUBE I ADMINISTERED THE MEDICATION. PT HAS NOT OTHER COMPLAINTS AND STATES THAT HE IS READY TO GO HOME. PT WANTED DOOR SHUT AND I WILL CONTINUE TO MONITOR.
[2019-09-11 08:23] VITALS: BP 115/67
--- NOTE | 2019-09-11 09:42 | NUR ---
Recommend consider change to bolus tube feeding schedule. Suggest 1 of 2cal HN 4x per day. Recommend discontinue IVF and start water flushes of 250ml every 4 hr.
--- NOTE | 2019-09-11 13:45 | NUR ---
FAXED REFERRAL TO [facility] RECEIVED CONFIRMATION AND LEFT MSG WITH ADM. DP TO FOLLOW.
--- NOTE | 2019-09-11 16:14 | NUR ---
S/W AUDIE IN ADMISSIONS AT [facility] AND HE WILL COME DO AN ON-SITE EVAL AT NOON TOMORROW. PT WILL BE GONE FOR HBO FROM ABOUT 0830 TO ALMOST NOON TOMORROW. THERE DON AND ADM ARE REVIEWING PT'S INFO FOR ADMISSION. PT'S FIRST CHOICE IS [facility] FOR A FACILTIY.
--- NOTE | 2019-09-11 17:35 | NUR ---
ASSUMED CARE OF PT AT 0700. PT IS AMBULATORY. PT IS GOING TO BE RECEIVING BOLUS FEEDINGS AND NOT CONTINUOUS PER DOCTOR. PT IS A Q6 BS CHECK. PTS RESIDUAL IS LESS THAN 50. PT IS NOT A FALL RISK AND CALL LIGHT IS WITHIN REACH. BED IS IN LOWEST POSITION. PER DOCTOR PT WILL BE WEENING OFF OF O2. WILL CONTINUE TO MONITOR THE PT.
[2019-09-11 17:45] VITALS: BP 141/91
[2019-09-11 20:03] VITALS: BP 133/85
--- NOTE | 2019-09-12 04:28 | NUR ---
ASSUMED PT CARE ON 09/11/191929. PT IS ALERT AND ORIENTED X 4. PT IS ALSO PLEASANT AND AWAKE WHEN BEGINING THE SHIFT. PT IS COMPLAINING OF A HEADACHE. PT REQUESTED OXYCODONE. MEDICATION WAS ADMINISTERED PER PEG TUBE. PT RECEIVES TRACH CARE FROM RESPIRATORY. PT REFUSED BOLUS FEED PER PEG TUBE AND SAID THAT HE WOULD LET THE DAY NURSE START THE BOLUS. PT EXPRESSED THAT HE WANTS TO GET A GOOD NIGHTS REST. Q6 BLOOD SUGAR WAS PERFORMED. PT EXPRESSED HIS CONCERNS ABOUT GOING TO ANOTHER FACILITY. PT IS AWAKE IN ROOM ON PHONE. I WILL CONTINUE TO MONITOR.
[2019-09-12 17:32] LABS: HEMATOCRIT 30.9 % (42.0-52.0); HEMOGLOBIN 9.7 gm/dL (14.0-18.0); MCH 29.5 pg (26.0-34.0); MCHC 31.4 g/dL (28.0-37.0); MCV 93.9 fL (80.0-100.0); RBC 3.29 mil/uL (4.50-6.00); RDW 24.7 % (10.5-14.5); WBC 16.9 thou/uL (4.0-11.0)
[2019-09-12 17:46] LABS: ALBUMIN 2.3 g/dL (3.4-5.0); CALCIUM 8.5 mg/dL (8.5-10.1); CREATININE 0.7 mg/dL (0.7-1.3); POTASSIUM 4.7 mmol/L (3.5-5.1); TOTAL BILIRUBIN 0.4 mg/dL (<0.1-1.0); TOTAL PROTEIN 6.4 g/dL (6.4-8.2)
[2019-09-12 17:53] LABS: ABSOLUTE NEUTROPHILS 15.9 thou/uL (1.4-8.2)
[2019-09-12 17:54] LABS: PLATELET COUNT 371 thou/uL (150-400)
[2019-09-12 17:55] LABS: ANISOCYTOSIS 1+
--- NOTE | 2019-09-12 20:37 | NUR ---
PT. CARE ASSUMED APPROX. 0700 A&Ox4 PT REQUESTED ATAVAN FOR HBO. LEFT THE FLOOR FROM [phone]. RECEIVED FIRST PEG TUBE FEEDING AND LIKES THIS ONE. TOLERATED WELL. TRACHE FELL OUT REPLACED AND SUCTIONED. PT. HAS SOME TROATH PAIN THAT WAS RESOLVED WITH TYLENOL. DRESSING CHANGED ON R. CHEST. IV. ON R. FOREARM SHOWS SIGNS OF EDEMA AND NEEDS TO BE MONITORED FOR PATENCY. OF RIGHT NOW STILL RUNS WELL. CONTINUES FLUIDS RUNNING. [facility]F CAME AND SPOKE TO PT. AND ABOUT PLACEMENT. PT. PLEASANT AND CALM
[2019-09-12 22:28] VITALS: BP 93/56
[2019-09-13 06:00] VITALS: BP 102/55
--- NOTE | 2019-09-13 06:51 | NUR ---
ASSUMED PT CARE ON 09/12/19 APPROX 1914. PT ALERT AND ORIENTED X4. FAMILY IN ROOM UPON INTRODUCTION. PT ACCEPTED THE BOLUS FEED AT MIDNIGHT WITH NO COMPLAINTS. PT STATES THAT HE WANTED TYLENOL FOR A HEADACHE. I ADMINISTERED HIS SCHEDULED MEDS WITH TYLENOL. I CHANGED HIS PEG TUBE DRESSING. PT RESTING IN ROOM. PT KNOCKED TRACH OUT OF HIS NECK WHILE BRUSHIBG TEETH. I CALLED RESP. TO FIX PT TRACH. PT STATES THAT HE WANTS THE BOLUS FEED AFTER HBO. *PT TAKES EXTRA TIME DUE TO TUBE FEED.
[2019-09-13 08:56] VITALS: BP 97/62
[2019-09-13 12:12] LABS: ABSOLUTE NEUTROPHILS 11.1 thou/uL (1.4-8.2); BASOPHILS 0.3 % (0.0-2.0); HEMATOCRIT 27.6 % (42.0-52.0); HEMOGLOBIN 8.8 gm/dL (14.0-18.0); LYMPHOCYTES 5.8 % (24.0-44.0); MCH 29.6 pg (26.0-34.0); MCHC 31.9 g/dL (28.0-37.0); MCV 92.8 fL (80.0-100.0); MONOCYTES 5.8 % (1.0-8.0); PLATELET COUNT 375 thou/uL (150-400); POLYS 88.1 % (36.0-66.0); RBC 2.97 mil/uL (4.50-6.00); RDW 24.1 % (10.5-14.5); WBC 12.6 thou/uL (4.0-11.0)
[2019-09-13 12:59] LABS: ANISOCYTOSIS 2+; PLATELET ESTIMATE NORMAL
[2019-09-13 13:00] LABS: BURR CELLS OCCASIONAL; MACROCYTES 1+; MICROCYTES 1+; OVALOCYTES FEW; POLYCHROMASIA 1+
--- NOTE | 2019-09-13 15:46 | NUR ---
FAXED REFERRAL TO [facility] SPOKE WITH ADM ROBERT SETH AND THEY CANNOT ACCEPT PT AT DISCHARGE. DP TO FOLLOW.
--- NOTE | 2019-09-13 15:58 | NUR ---
CASE DISCUSSED WITH AMARILIS, DR WILLIAMSON, DR CARVAJAL AND DR COTA. DR WILLIAMSON PREFERS TO CONTINUE WORKING WITH PT ON HIS HBO TREATMENTS. S/W ROLO AT [facility] AND THEY ARE REVIEWING PT'S INFO FOR POSSIBLE ADMISSION. TRIED TO REACH RADHIKA FROM [facility] AND MESSAGE HAS BEEN LEFT. S/W PAULY FROM [email or web address] [facility] AND IF FACILITIES ARE NOT ABLE TO TRANSPORT FROM [facility] THEY WOULD CHARGE $60 ROUNDTRIP AND FROM [facility] IT WOULD BE $50 ROUNDTRIP. WHEREVER PT GOES DR MARIE WANTS TO HAVE TEMPORARY PRIV. SO HE CAN CONTINUE TO FOLLOW PT.
--- NOTE | 2019-09-13 16:29 | NUR ---
RECEIVED WORD BACK FROM [facility] THAT THEY WOULD NOT BE ABLE TO MEET PT'S NEEDS.
[2019-09-13 16:32] VITALS: BP 113/61
--- NOTE | 2019-09-13 20:26 | NUR ---
PT. CARE ASSUMED 0700 A&Ox4. IV FLUIDS RUNNING WELL TOLERATED. BARIATRIC TREATMENT TODAY. ATIVAN GIVEN BEFORE. TRACHEOSTOMY SITE COUGHING UP THICK SPUTUM THAT WAS BLOOD TINGED. AFTER CONSULTING DR. SNOWDEN IT WAS DETERMINED DUE TO DRY AIR AND HE WAS PLACED ON A TRACHE HUMIDIFIER. WEANED OFF OF 14 LITERS COMPLEATLY AND HE IS TOLERATING THIS WELL WITH O2 SATS AROUND 97 ALL DAY WITH RECHECKS. PT. WENT FOR A ROUTINE FOLLOW UP CHEST X-RAY. BLOOD SUGARS Q6 ALL WITH RESULTS FOR NO INSULIN NEEDS. PT, UP AT BARB AND STILL PENDING DISCHARGE
--- NOTE | 2019-09-14 02:25 | NUR ---
ASSESSMENT COMPLETED. PT IS ALERT AND ORIENTED. DOING OKAY ON ROOM AIR.PT REMAINS UP AD BARB. BOLUS FEEDINGS GIVEN AND PT TOLERATED WELL. AFEBRILE. CONTINUES ON SLOW MANTAINANCE FLUIDS. INTERMITTENT COUGHING WITH THICK SPUTUM PRODUCTION.RUE AND BLE WITH EDEMA.PT GIVEN PAIN MEDS FOR NECK PAIN. CALLS APPROPRIATELY. WILL CONTINUE WITH POC TILL EOS.
[2019-09-14 06:15] VITALS: BP 136/81
[2019-09-14 09:13] VITALS: BP 86/46
[2019-09-14 11:06] VITALS: BP 100/57
--- NOTE | 2019-09-14 16:11 | NUR ---
PT. CARE ASSUMED 0700. A&Ox4. NEW IV PLACE WITH IV TEAM LEFT UPPER ARM. PT FEELING WEAK AND VERY SLEEPY THIS MORNING. BP 84/47 HR 112 LUNG SOUNDS L LOWER AND UPPER COARSE, CRACKLES. RIGHT SIDE DIMISHES AND COARSE. TEMP 99.1 AXILLARY. HOSPITALIST DOC NOTIFIED. NEW ORDERS NOTED. PT REFUSED [facility]. ST OF THE CHEST ORDERED. HOSPITALIST AND ADMITTING DOCTOR NOTIFIED OF RESULTS. SUGAR CHECKS CHANGED TO BID 1200 AND 1800. NO VITALS OVER NIGHT. ATTEMPTED TO CALL DIATICIAN ABOUT POSSIBLE TUBE FEEDING CHANGED PER DOCTOR ORDER.UNABLE TO CONTACT. WILL LET THE NIGHT NURSE KNOW SO THEY CAN PASS IT ON TO NEXT SHIFT TO BE DONE ON MONDAY. SPUTUM CULTURE ORDERED.SEPSIS SCREENING FLAGGED PROVIDER AWARE. LINEMAN DOCTOR TO BE CONTACTED ON MONDAY TO FIND OUT WHEN PT WILL HAVE HIS NEXT APPOINTMENT. (MARKO LIN [phone]) WILL CONTINUE TO MONITOR PATIENT. NURSES AND PROVIDER EDUCATED PATIENT ON THE NEED OF KEEPING HUMIDIFIER ON TO AVOID DRYING. CALL LIGHT IN REACH.
[2019-09-14 22:25] VITALS: BP 101/56
--- NOTE | 2019-09-15 07:28 | NUR ---
PATIENT ALERT AND ORIENTED X4. UP AD BARB. HAS TRACH WITH SHANNAN. O2 SAT ON RA WAS 89%, O2 ADDED TO TS AND O2 SAT WAS 94%. TUBE FEEDING BOLUS Q 6HOURS. SLEPT LITTLE THIS SHIFT.
[2019-09-15 08:51] VITALS: BP 94/54
--- NOTE | 2019-09-15 16:51 | NUR ---
ASSUMED CARE AT 0700, SHIFT ASSESSMENT DONE, MEDS GIVEN, VSS. REPORTED PAIN, PRN PAIN MEDS GIVEN. DR CARVAJAL ROUNDED ON PT, ASKED THE PT TO BE ON ROOM AIR WITH 35% OF HUMIDITY. PT DOING WELL ON ROOM AIR, GOAL SATURATION IS ABOVE 92%, PT IS SATURATING AT 95% ADN ABOVE. REFUSED TUBE FEDDING SINCE THIS AM AT 0700, INDICATING PT IS TOO FULL. RECEIVING IV ANTIBIOTICS, TRACHE SHIELD IN PLACE. UP AD BARB IN THE ROOM. WILL CONTINUE TO ASSESS AND ASSIST WITH ADLs NEEDED.
[2019-09-15 18:01] VITALS: BP 110/65
[2019-09-15 20:00] VITALS: BP 116/66
--- NOTE | 2019-09-16 05:30 | NUR ---
PT AMBULATING TO BATHROOM INDEPENDENTLY AND IS TOLERATING WELL. PERCOCET PROVIDING PAIN RELIEF. RESTING COMFORTABLY. NO NEEDS VOICED. CALL LIGHT WITHIN REACH. WILL CONTINUE TO PROVIDE FREQUENT OBSERVATION.
[2019-09-16 09:23] VITALS: BP 114/67
[2019-09-16 17:32] VITALS: BP 113/67
--- NOTE | 2019-09-16 19:30 | NUR ---
Pt down for HBO tx this morning. IV therapist restarted IV due to leaking at previous site. Pt utilitzing artifical larynx and writing notes to communicate. Pt given one can of tube feeding per PEG tube. Report given to RN assuming care.
[2019-09-16 21:33] VITALS: BP 134/77
--- NOTE | 2019-09-17 00:51 | NUR ---
ASSUMED PT CARE ON 09/16/19 AT APPROX 1915. I ADMINISTERED PT MEDS PER PEG TUBE. PT STATES THAT HIS THROAT IS IN PAIN SO I ADMINISTERED PAIN MEDICATION WITH HIS SCHEDULED MEDICATION. PT STATES THAT HE WANTS TO BE LEFT ALONE UNTIL MORNING MEDICATION PASS. PT REFUSED BOLUS FEED. PT IS IN A PLEASANT MOOD AND IS RESTING IN HIS ROOM.
[2019-09-17 06:38] VITALS: BP 114/74
[2019-09-17 08:00] VITALS: BP 102/62
--- NOTE | 2019-09-17 11:44 | NUR ---
PT CARE ASSUMES 0700. A&Ox4. 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 TRACHE DRESSING CHANGED. PEGTUBE DRESSING CHANGED. NEW TUBE FEEDING ORDERED FROM [facility]. BLOOD GLUCOSE ONLY AT 1200 AND 1800. NO 0400 VITALS. CALL LIGHT IN REACH. PT IS COUGHING UP THICK SECREATION AND SUCTIONS SELF. TUBE FEEDING TOLERATED WELL. BED LOCKED. AWAITING PLACEMENT TO A FACILITY.
--- NOTE | 2019-09-17 16:46 | NUR ---
FAXED REFERRAL TO [facility] SPOKE WITH HOA IN ADM THEY ARE OUT OF NETWORK WITH PT'S INSURANCE. FAXED REFERRAL TO [facility] SPOKE WITH HERRERA IN ADM SHE IS OUT OF NETWORK WITH PT'S INSURANCE AND WOULD NOT BE ABLE TO TRANSPORT PT DAILY TO [facility].
[2019-09-17 16:49] VITALS: BP 109/68
--- NOTE | 2019-09-17 17:06 | NUR ---
RECEIVED CALL FROM GONSALO FROM [facility] AND SHE SAYS THEY CANNOT ACCEPT PT DUE TO NOT BEING STAFFED TO ACCEPT ANY TRACHS THAT ARE NOT AT LEAST 6 MONTHS OLD. S/W MARIA [employer] AND THEY CANNOT TAKE ANY TRACHS. ASKED DC [employer] ATTENDANT TO FAX REFERRAL TO IGNITE LOCATION BY SINCE THEY NOW HAVE THEIR BLUE CROSS CONTRACT. S/W HERRERA FROM [facility] & THEY ARE ON [employer] LIST SO ARE NOT OUT OF NETWORK. ALERTED HER THAT WE WOULD PAY THE COST FOR THE M-F HBO TREATMENTS HERE AND WOULD ARRANGE THIS WITH [facility]. SHE WILL TAKE THIS TO HER ADMINISTRATORS AND LET ME KNOW SOMETHING. CASE DISCUSSED WITH DR WILLIAMSON.
[2019-09-17 19:35] VITALS: BP 105/62
[2019-09-18 08:33] VITALS: BP 101/69
--- NOTE | 2019-09-18 09:36 | NUR ---
IVF discontinued so recommend 250ml water flushes every 4hr to meet fluid needs. Continue bolus TwoCal HN 4 cans per day
--- NOTE | 2019-09-18 11:37 | NUR ---
FAXED REFERRAL TO [facility] FOR THE [place] [facility] SHE RECEIVED REFERRAL AND CAN ACCEPT CLINICALLY SHE NEEDS PT'S SOCIAL SECURITY NUMBER TO RUN FINANCIAL. DP TO FOLLOW.
--- NOTE | 2019-09-18 11:41 | NUR ---
FAXED REFERRAL TO [facility] SPOKE WITH ANNETTE IN ADM SHE RECEIVED REFERRAK AND WILL REVIEW., FAXED REFERRAL TO [facility] SPOKE WITH [facility] VALENTINE LIAHOLLAND AND SHE RECEIVED REFERRAL AND WILL CALL BETI GARCIA SHE HAS SOME QUESTIONS. FAXED REFERRAL TO [facility] SPOKE WITH SEN IN ADM SHE RECEIVED REFERRAL AND WILL NOT ACCEPT. DP TO FOLLOW.
--- NOTE | 2019-09-18 15:05 | NUR ---
RECEIVED CALL BACK FROM HERRERA MAHAJANSwati AND HER ADMISTRATIVE TEAM IS STILL REVIEWING PT FOR ADMISSION. S/W PHIL ADMISSION [facility] FOR [facility] AND THEY ARE STILL REVIEWING INFO WELL. PHIL WILL DO ONSITE THIS AFTERNOON. S/W ANNETTE FROM [facility] AND SHE WANTS TO TALK WITH SOMEONE IN HBO TO DETERMINE BILLING FOR HBO. GAVE HER HBO NUMBER TO CALL. SOCIAL SECURITY NUMBER PROVIDED TO [facility] FROM [facility] AND THEY ARE SEEKING [facility] REFERRAL.
[2019-09-18 17:57] VITALS: BP 119/74
--- NOTE | 2019-09-18 18:48 | NUR ---
ASSUMED PATIENT CARE AT 0700. A/O X4. ANXIOUS. SUCTION NEEDS. UP AD BARB. VSS. PROGRESSNG TOWARDS POC GOALS.
[2019-09-18 19:52] VITALS: BP 116/74
[2019-09-18 22:13] VITALS: BP 116/74
--- NOTE | 2019-09-19 01:38 | NUR ---
PATIENT REFUSED TUBE FEEDING BOLUS.
--- NOTE | 2019-09-19 01:50 | NUR ---
PATIENT IS NOT RECIEVING HIS PIPERCILLING AT THIS TIME. ROUTE IS NOT AVAILABLE. PATIENTS IV SITE IS LEAKING. NO S/S OF INFILTRATION BUT FLUID IS LEAKING FROM IV SITE UPON 10 ML OF SALINE FLUSH. PATIENT DOES NOT WANT AN IV INSERT ATTEMPT UNLESS DONE W AN ULTRASOUND. STAFF IS UNAVAILABLE W ULTRASOUND PROFICIENCY FOR IV INSERTION. WILL CONTINUE TO FIND RESOURCES TO START ROUTE TO INFUSE PIPERCILLIN
--- NOTE | 2019-09-19 03:39 | NUR ---
ASSUMED CARE OF PATIENT AT 2144 PER PATIENT REQUEST. ASSESSMENT CHARTED. MEDICATIONS GIVEN PER DEC. PATIENT IS ALERT AND ORIENTED AND USES A SPEECH ASSIST DEVICE TO COMMUNICATE. PATIENT C/O PAIN OF 7/10 AT HEAD AND THROAT. PRN PAIN MEDS WERE GIVEN. PATIENT REFUSED HIS BOLUS TUBE FEEDING AT THIS TIME. PATIENT RECIEVED HIS ZOSYN LATE DUE TO BAD IV SITE. PATIENT IS TO RECIEVE HYPERBARIC TX IN AM. HE REQUESTS ATIVAN AT 0815 SO HE DOES NOT GET ANXIOUS. PATIENT WANTS TO REST TONIGHT AND REQUESTS MINIMAL DISTURBANCE. PATIENT HAS BEEN REQUESTING BLOOD SUGAR CHECKS BEFORE BED INSTEAD OF MIDNIGHT TO NOT BE DISTURBED. PATIENT VOICES NO OTHER NEEDS AT THIS TIME. WILL CONTINUE TO MONITOR AND FOLLOW POC
[2019-09-19 08:45] VITALS: BP 100/60
--- NOTE | 2019-09-19 12:31 | NUR ---
UPDATE ON DC PLANNING PROVIDED TO PT. RECEIVED WORD BACK FROM JOELLEN MEYERS/MICHELLE LOZANO THAT THEY WILL BE UNABLE TO ACCEPT PT AT EITHER LOCATION. DISCUSSED WITH PT IMPORTANCE OF WORKING WITH THERAPY ONCE THEY COME DO RE-EVALS TODAY. HE ACKNOWLEDGED IMPORTANCE.
--- NOTE | 2019-09-19 16:02 | NUR ---
CALLED AND S/W HERRERA IN ADMISSIONS AT [facility] AND SHE SAYS HER CLINICAL TEAM IS NOT COMFORTABLE ACCEPTING THIS PT WITH HIS WOUND ON HIS TRACH AREA. [facility] TO GET AN UPDATE FROM THEM.
--- NOTE | 2019-09-19 16:09 | NUR ---
RECEIVED CALL FROM PT'S [employer] THAT THEY ARE GIVING AUTH #[id number] FOR [facility]. PT TO DC TO FACILITY TOMORROW NEED DR. MARIE TO ESTABLISH TEMPORARY PRIVILEGES AT FACILITY TO FOLLOW PT AND TO MAKE ARRANGEMENT FOR [employer] TX'[facility]. SPOKE WITH RADHIKA AT [facility] AND SHE WILL ARRANGE TRANSPORT FOR TOMORROW.
[2019-09-19 16:29] VITALS: BP 100/55
[2019-09-19 20:40] VITALS: BP 100/55
--- NOTE | 2019-09-20 05:00 | NUR ---
ASSESSMENT COMPLETED. PT IS UP AD BARB. C/O NECK AND HEADACHE-PAIN MEDS GIVEN WITH RELIEF. AFEBRILE. REFUSED MIDNOC BOLUS FEEDINGS.NO FURTHER CONCERNS.
[2019-09-20 13:17] VITALS: BP 120/65
--- NOTE | 2019-09-20 13:50 | NUR ---
FAXED REFERRAL TO [facility] FOR A SKILLED STAY SPOKE WITH TAYO IN ADM HE RECEIVED REFERRAL AND WILL REVIEW.
[2019-09-20] MEDS ORDERED: CIPRO500 MG PER TUBE (14:39)
[2019-09-20] MEDS ORDERED: SINGULAIR 10 MG10 M1 PO (14:41)
[2019-09-20] MEDS ORDERED: PREDNISONE 20 M20 M1 PER TUBE (14:42)
[2019-09-20] MEDS ORDERED: SYNTHROID50 MCG PER TUBE (14:43)
--- NOTE | 2019-09-20 15:19 | NUR ---
RECEIVED WORD FROM [facility] SKILLED FACILITY THAT THEY ARE ABLE TO ACCEPT PT TODAY. S/W HARRISON VILCHIS FROM [employer] [facility] AND AUTH WAS SWITCHED TO [facility] AUTH # [id number]. harrison [phone], ext [phone]. APPROVAL OBTAINED FROM [facility] TO ARRANGE TRANSPORT TO And from [facility] FOR HBO TREATMENTS. S/W PHANI AT [facility] TO ARRANGE PICK-UP AT 0845 AND THEN PICK-UP AT 12 NOON TO TRANSPORT BACK TO [facility] FROM HBO TREATMENTS M-F UNTIL OCT 08 WITH THE EXCEPTION OF AND MONDAY AFTER . [facility] IS AWARE OF THIS. DR MARIE AWARE AND IN AGREEMENT TO TRANSFER TO [facility] SKILLED UNIT. FAXED AUTHORIZATION OF SERVICES FOR [facility] TREATMENTS TO GARY AQUINO IN [employer].
--- NOTE | 2019-09-20 16:20 | NUR ---
PT DISCHARGING TODAY TO [facility] FOR SKILLED STAY FAXED DC ORDERS/SUMMARY TO FACILITY RECEIVED CONFIRMATION. LEFT MSG WITH PT'S AUTHORIZED CONTACT (PAT) OF DC AND TIME OF TRANSPORT. ARRANGED TRANSPORT BY [facility] FOR [id number] UNIT NOTIFIED AND CHART COPY PER US. RN TO CALL REPORT TO [phone].
--- NOTE | 2019-09-20 16:28 | NUR ---
S/W GINNY Lee FROM MEDICAL MANAGEMENT AT [facility] AND MELONIE Hodge AND THEY BOTH HAVE ASSURED ME THAT IN THEIR SYSTEM APPROVAL FOR HBO TREATMENTS GO THRU OCT 09.
--- NOTE | 2019-09-20 17:00 | NUR ---
ASSUMED CARE OF PT AT 0700. PT WENT TO [facility] IN THE AM. 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 PT HAS A HUMIDIFIER ON 5.0 L. PT REFUSED BOLUS FEEDINGS. PT WILL BE DISCHARGED TO [facility]. LAST BM WAS TODAY. R HAND IV REMOVED AND DRY AND INTACT. PT SIGNED DISCHARGE PAPERWORK. WILL CONTINUE TO MONITOR PT UNTIL PT IS DISCHARGED.
== END 2019-09-20 18:58 | DRG 146 ==
LOC: 4E 14:54 → 4S 16:46 → ICU 08-29 19:41 → 4S 08-30 11:14
PROVIDERS: Hospitalist; Internal Medicine; Internal Medicine Gastroenterology; Nurse Practitioner; ADMIT Otolaryngology Plastic Surgery within the Head & Neck
DX: C32.9 Malignant neoplasm of larynx, unspecified (principal); J18.9 Pneumonia, unspecified organism; E43 Unspecified severe protein-calorie malnutrition; K25.4 Chronic or unspecified gastric ulcer with hemorrhage; K26.4 Chronic or unspecified duodenal ulcer with hemorrhage; J96.01 Acute respiratory failure with hypoxia; D62 Acute posthemorrhagic anemia; K56.7 Ileus, unspecified; T66.XXXA Radiation sickness, unspecified, initial encounter; D02.0 Carcinoma in situ of larynx; J39.2 Other diseases of pharynx; E11.9 Type 2 diabetes mellitus without complications; E03.9 Hypothyroidism, unspecified; Z60.2 Problems related to living alone; E83.42 Hypomagnesemia; J30.9 Allergic rhinitis, unspecified; D72.829 Elevated white blood cell count, unspecified; Z93.0 Tracheostomy status; Z87.891 Personal history of nicotine dependence; Z93.1 Gastrostomy status; Z79.899 Other long term (current) drug therapy
CPT/HCPCS: 10078; 10100; 10102; 10195; 50010; 62110; 62900; 70005; 70018

== ENCOUNTER → 2019-08-28 | Outpatient (CLI) | payer OTHER ==
[~2019-08-28] MED LIST: CARDIZEM60 MG PER TUBE; FUROSEMIDE 40 M40 MG PO; GUAIFENESIN200 MG PER TUBE; MELATONIN3 M2 PER TUBE; METFORMIN HCL500 MG PER TUBE; MIRALAX119 GM PER TUBE; NORCO 5-325 TA1 EAC1 PER TUBE; PEPCID20 MG PER TUBE; PREDNISONE 5 MG5 MG PER TUBE; PROSCAR 5MG TABL5 M1 PER TUBE; REGLAN 10 MG TA10 MG PO; REGLAN10 MG PER TUBE; SIMVASTATIN80 MG PER TUBE
== END ==
LOC: HYPER 09:00
DX: L59.8 Other specified disorders of the skin and subcutaneous tissue related to radiation (principal); Y84.2 Radiological procedure and radiotherapy as the cause of abnormal reaction of the patient, or of later complication, without mention of misadventure at the time of the procedure

== ENCOUNTER → 2019-09-02 | Outpatient (CLI) | payer OTHER | LOC: HYPER 07:16 | DX: L59.8 Other specified disorders of the skin and subcutaneous tissue related to radiation (principal); Y84.2 Radiological procedure and radiotherapy as the cause of abnormal reaction of the patient, or of later complication, without mention of misadventure at the time of the procedure ==

== ENCOUNTER → 2019-09-23 | Outpatient (CLI) | payer OTHER ==
[~2019-09-23] MED LIST changes: +CIPRO500 MG PER TUBE; +PREDNISONE 20 M20 M1 PER TUBE; +SINGULAIR 10 MG10 M1 PO; +SYNTHROID50 MCG PER TUBE
== END ==
LOC: HYPER 10:35
DX: L59.8 Other specified disorders of the skin and subcutaneous tissue related to radiation (principal); Y84.2 Radiological procedure and radiotherapy as the cause of abnormal reaction of the patient, or of later complication, without mention of misadventure at the time of the procedure

== ENCOUNTER → 2019-09-25 | Outpatient (CLI) | payer OTHER | LOC: HYPER 08:39 | DX: L59.8 Other specified disorders of the skin and subcutaneous tissue related to radiation (principal); M87.88 Other osteonecrosis, other site; Y84.2 Radiological procedure and radiotherapy as the cause of abnormal reaction of the patient, or of later complication, without mention of misadventure at the time of the procedure ==

== ENCOUNTER → 2019-09-30 | Outpatient (CLI) | payer OTHER | LOC: HYPER 13:26 | DX: L59.8 Other specified disorders of the skin and subcutaneous tissue related to radiation (principal); M87.88 Other osteonecrosis, other site; Y84.2 Radiological procedure and radiotherapy as the cause of abnormal reaction of the patient, or of later complication, without mention of misadventure at the time of the procedure ==

== ENCOUNTER → 2019-10-01 | Outpatient (CLI) | payer OTHER | LOC: HYPER 10:03 | DX: L59.8 Other specified disorders of the skin and subcutaneous tissue related to radiation (principal); Y84.2 Radiological procedure and radiotherapy as the cause of abnormal reaction of the patient, or of later complication, without mention of misadventure at the time of the procedure ==

== ENCOUNTER → 2019-10-02 | Outpatient (CLI) | payer OTHER | LOC: HYPER | DX: L59.8 Other specified disorders of the skin and subcutaneous tissue related to radiation (principal); Y84.2 Radiological procedure and radiotherapy as the cause of abnormal reaction of the patient, or of later complication, without mention of misadventure at the time of the procedure ==

== ENCOUNTER → 2019-10-03 | Outpatient (CLI) | payer OTHER | LOC: HYPER 08:34 | DX: L59.8 Other specified disorders of the skin and subcutaneous tissue related to radiation (principal); Y84.2 Radiological procedure and radiotherapy as the cause of abnormal reaction of the patient, or of later complication, without mention of misadventure at the time of the procedure ==

== ENCOUNTER → 2019-10-04 | Outpatient (CLI) | payer OTHER | LOC: HYPER 08:09 | DX: L59.8 Other specified disorders of the skin and subcutaneous tissue related to radiation (principal); Y84.2 Radiological procedure and radiotherapy as the cause of abnormal reaction of the patient, or of later complication, without mention of misadventure at the time of the procedure ==

== ENCOUNTER → 2019-10-07 | Outpatient (CLI) | payer OTHER | LOC: HYPER 09:09 | DX: L59.8 Other specified disorders of the skin and subcutaneous tissue related to radiation (principal); M87.88 Other osteonecrosis, other site; Y84.2 Radiological procedure and radiotherapy as the cause of abnormal reaction of the patient, or of later complication, without mention of misadventure at the time of the procedure ==

== ENCOUNTER → 2019-10-08 | Outpatient (CLI) | payer OTHER | LOC: HYPER 09:57 | DX: L59.8 Other specified disorders of the skin and subcutaneous tissue related to radiation (principal); Y84.2 Radiological procedure and radiotherapy as the cause of abnormal reaction of the patient, or of later complication, without mention of misadventure at the time of the procedure ==

== ENCOUNTER → 2019-10-09 | Outpatient (CLI) | payer OTHER | LOC: HYPER 09:59 | DX: L59.8 Other specified disorders of the skin and subcutaneous tissue related to radiation (principal); Y84.2 Radiological procedure and radiotherapy as the cause of abnormal reaction of the patient, or of later complication, without mention of misadventure at the time of the procedure ==